=== PATIENT | male | born 1955 | race Caucasian/White ===

== ENCOUNTER 2017-06-28 19:55 | Emergency (ER) | payer MEDICARE, OTHER ==
[~2017-06-28] VITALS: Ht 182.9 cm; Wt 102.1 kg
--- OUTSIDE RECORDS SUMMARY | 2017-06-28 20:02 | XMS REPORT | Referral Summary ---
Author Author [facility] Organization [facility] Address Unknown Phone Unavailable Encounter VC ZAPIEN [id number] Date(s): 06/27/15 - 06/27/15 [facility] [address] [place], [place] [address] Discharge Diagnosis: Contact dermatitis Discharge Disposition: 01-Home or Self Care Attending Physician: Hayden Kumar MD Admitting Physician: Hayden Kumar MD Vital Signs No data available for this section Problem List Condition Effective Dates Status Health Status Informant Acute Active pain(Confirmed) Knowledge Active deficit(Confirmed)1 Self -care Active deficit(Confirmed)2 1Problem added automatically by system based on initiation of Knowledge Deficit Plan of Care 2Problem added automatically by system based on initiation of Self Care Deficit Plan of Care Allergies, Adverse Reactions, Alerts Substance Reaction Severity Status Flexeril Active methadone-like opiates Active Medications acetaminophen 325 mg oral tablet 2 tabs, Oral, q4hr, Pain, 0 Refill(s) Start Date: 08/30/14 Status: Ordered aspirin 81 mg oral delayed release tablet 1 tabs, Oral, Daily, 0 Refill(s) Start Date: 08/30/14 Status: Ordered Ativan 2 mg/mL injectable solution 0.25 mL, IntraMuscular, q4hr, Agitation, 0 Refill(s) Start Date: 08/30/14 Status: Ordered azaTHIOprine 50 mg oral tablet 1 tabs, Oral, BID, 0 Refill(s) Start Date: 08/30/14 Status: Ordered cholecalciferol 1000 intl units oral tablet 1 tabs, Oral, Daily, 0 Refill(s) Start Date: 08/30/14 Status: Ordered clindamycin 150 mg oral capsule 2 caps, Oral, q6hr, 0 Refill(s) Start Date: 08/30/14 Status: Ordered desonide 0.05% topical cream 1 raul, Topical, BID, 0 Refill(s) Start Date: 08/30/14 Status: Ordered desonide 0.05% topical ointment 1 raul, Topical, BID, apply to face twice daily up to 10 days, # 30 g, 0 Refill(s ), Pharmacy: [facility] Start Date: 06/27/15 Status: Ordered ferrous sulfate 325 mg (65 mg elemental iron) oral delayed release tablet 1 tabs, Oral, BIDWM, 0 Refill(s) Start Date: 08/30/14 Status: Ordered hydrochlorothiazide 25 mg oral tablet 1 tabs, Oral, Daily, 0 Refill(s) Start Date: 08/30/14 Status: Ordered Lidoderm 5% topical film 1 patches, TransDermal, Daily, 0 Refill(s) Start Date: 08/30/14 Status: Ordered lisinopril 20 mg oral tablet 1 tabs, Oral, Daily, 0 Refill(s) Start Date: 08/30/14 Status: Ordered magnesium hydroxide 2,400 mg, Oral, q6hr, Constipation, 0 Refill(s) Start Date: 08/30/14 Status: Ordered metFORMIN 500 mg oral tablet 1 tabs, Oral, BIDWM, 0 Refill(s) Start Date: 08/30/14 Status: Ordered metoprolol tartrate 100 mg oral tablet 1 tabs, Oral, BID, 0 Refill(s) Start Date: 08/30/14 Status: Ordered Norvasc 10 mg oral tablet 1 tabs, Oral, Bedtime (once a day), 0 Refill(s) Start Date: 08/30/14 Status: Ordered oxybutynin 5 mg oral tablet 1 tabs, Oral, BID, 0 Refill(s) Start Date: 08/30/14 Status: Ordered SEROquel 100 mg oral tablet 2.5 tabs, Oral, Bedtime (once a day), 0 Refill(s) Start Date: 08/30/14 Status: Ordered SEROquel 50 mg oral tablet 1 tabs, Oral, q6hr, Other (See Comment), 0 Refill(s) Start Date: 08/30/14 Status: Ordered Voltaren Topical 1% topical gel 1 raul, Topical, QID, Pain, 0 Refill(s) Start Date: 08/30/14 Status: Ordered Results No data available for this section Immunizations Vaccine Date Refusal Reason pneumococcal 23-polyvalent vaccine 08/08/14 Procedures No data available for this section Social History Social History Type Response Smoking Status Never smoker Assessment and Plan Extracted from: Title: Ambulatory Patient Education Author: Hayden Kumar MD Date: Immunology Eczema Eczema, also called atopic dermatitis, is a skin disorder that causes inflammation of the skin. It causes a red rash and dry, scaly skin. The skin becomes very itchy. Eczema is generally worse during the cooler winter months and often improves with the warmth of summer. Eczema usually starts showing signs in infancy. Some children outgrow eczema, but it may last through adulthood. CAUSES The exact cause of eczema is not known, but it appears to run in families. People with eczema often have a family history of eczema, allergies, asthma, or hay fever. Eczema is not contagious. Flare-ups of the condition may be caused by: Contact with something you are sensitive or allergic to. Stress. SIGNS AND SYMPTOMS Dry, scaly skin. Red, itchy rash. Itchiness. This may occur before the skin rash and may be very intense. DIAGNOSIS The diagnosis of eczema is usually made based on symptoms and medical history. TREATMENT Eczema cannot be cured, but symptoms usually can be controlled with treatment and other strategies. A treatment plan might include: Controlling the itching and scratching. Use fgtc-ruf-xxrjxhz antihistamines as directed for itching. This is especially useful at night when the itching tends to be worse. Use vefp-jip-dcmkunr steroid creams as directed for itching. Avoid scratching. Scratching makes the rash and itching worse. It may also result in a skin infection (impetigo) due to a break in the skin caused by scratching. Keeping the skin well moisturized with creams every day. This will seal in moisture and help prevent dryness. Lotions that contain alcohol and water should be avoided because they can dry the skin. Limiting exposure to things that you are sensitive or allergic to (allergens) . Recognizing situations that cause stress. Developing a plan to manage stress. HOME CARE INSTRUCTIONS Only take lmhw-ubp-krjkbop or prescription medicines as directed by your health care provider. Do not use anything on the skin without checking with your health care provider. Keep baths or showers short (5 minutes) in warm (not hot) water. Use mild cleansers for bathing. These should be unscented. You may add nonperfumed bath oil to the bath water. It is best to avoid soap and bubble bath. Immediately after a bath or shower, when the skin is still damp, apply a moisturizing ointment to the entire body. This ointment should be a petroleum ointment. This will seal in moisture and help prevent dryness. The thicker the ointment, the better. These should be unscented. Keep fingernails cut short. Children with eczema may need to wear soft gloves or mittens at night after applying an ointment. Dress in clothes made of cotton or cotton blends. Dress lightly, because heat increases itching. A child with eczema should stay away from anyone with fever blisters or cold sores. The virus that causes fever blisters (herpes simplex) can cause a serious skin infection in children with eczema. SEEK MEDICAL CARE IF: Your itching interferes with sleep. Your rash gets worse or is not better within 1 week after starting treatment. You see pus or soft yellow scabs in the rash area. You have a fever. You have a rash flare-up after contact with someone who has fever blisters. Document Released: 09/09/2001 Document Revised: 07/03/2014 Document Reviewed: [facility] Patient Information 2015 [facility], [facility]. This information is not intended to replace advice given to you by your health care provider. Make sure you discuss any questions you have with your health care provider. No follow up information was provided. Extracted from: Title: Office Visit Note Author: Hayden Kumar MD Date: 06/27/15 Assessment/Plan 1.Contact dermatitis This appears to be due to allergic or irritant contact dermatitis with no clear cause. Patient has dementia so it is unclear what may have happened. Discontinue all products and use only very gentle cleansing once or twice a day to the face and use desonide ointment for up to 10 more days and follow-up in 3 weeks to see if it continues to improve. I expect the hyperpigmentation will persist for quite some time and gradually fade Ordered: desonide topical, 1 raul, Topical, BID, apply to face twice daily up to 10 days , # 30 g, 0 Refill(s), Pharmacy: [facility] Office Visit Level 2 New [id number]
--- OUTSIDE RECORDS SUMMARY | 2017-06-28 20:02 | XMS REPORT | Referral Summary ---
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 Use pnzk-vit-idejqqi antihistamines as directed for itching. This is especially useful at night when the itching tends to be worse. Use rkla-wzp-gdatkve steroid creams as directed for itching. Avoid [...] manage stress. HOME CARE INSTRUCTIONS Only take hbxe-brz-kcbuywp or prescription medicines as directed by your [...] Released: 09/09/2001 Document Revised: 07/03/2014 Document Reviewed: [facility] Patient Information [facility]. This information is not intended to [...] , # 30 g, 0 Refill(s), Pharmacy: [facility] Office Visit Level 2 New [id number]
--- OUTSIDE RECORDS SUMMARY | 2017-06-28 20:03 | XMS REPORT | Referral Summary ---
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 Name Role Phone Estela Thao PCP Encounter VC Date(s): 05/21/16 - 05/21/16 [facility] [address] [place], [place] [address] Discharge Disposition: 01-Home or Self Care Attending Physician: Jana Allen MD Admitting Physician: Jana Allen MD Referring Physician: Estela Thao DO Vital Signs Most recent to 1 oldest [Reference Range]: Respiratory Rate 20 br/min [14-20 br/min] (05/21/16 10:06 AM) Blood Pressure 130/80 mmHg [90-140/60-90 mmHg] (05/21/16 10:06 AM) Problem List Condition Effective Dates Status Health [...] 0 Refill(s) Start Date: 08/30/14 Status: Ordered amLODIPine Oral, Daily, 0 Refill(s) Start Date: 05/21/16 Status: Ordered azaTHIOprine 50 mg oral tablet 1 tabs, Oral, BID, 0 Refill(s) Start Date: 08/30/14 Status: Ordered azaTHIOprine 50 mg oral tablet mg tabs, Oral, Daily, 0 Refill(s) Start Date: 05/21/16 Status: Ordered clopidogrel 75 mg oral tablet mg tabs, Oral, Daily, 0 Refill(s) Start Date: 05/21/16 Status: Ordered donepezil 10 mg oral tablet mg tabs, Oral, Bedtime (once a day), 0 Refill(s) Start Date: 05/21/16 Status: Ordered Generlac 0 Refill(s) Start Date: 05/21/16 Status: Ordered hydrALAZINE 0 Refill(s) Start Date: 05/21/16 Status: Ordered HYDROcodone-acetaminophen 10 mg-325 mg oral tablet tabs, Oral, q6hr, 0 Refill(s) Start Date: 05/21/16 Status: Ordered metFORMIN 500 mg oral tablet 1 tabs, Oral, BIDWM, 0 Refill(s) Start Date: 08/30/14 Status: Ordered metFORMIN 500 mg oral tablet, extended release mg tabs, Oral, Daily, 0 Refill(s) Start Date: 05/21/16 Status: Ordered metoprolol tartrate 100 mg oral tablet 1 tabs, Oral, BID, 0 Refill(s) Start Date: 08/30/14 Status: Ordered metoprolol tartrate 50 mg oral tablet mg tabs, Oral, BID, 0 Refill(s) Start Date: 05/21/16 Status: Ordered Norvasc 10 mg oral tablet 1 tabs, Oral, Bedtime (once a day), 0 Refill(s) Start Date: 08/30/14 Status: Ordered omeprazole 20 mg oral delayed release tablet mg tabs, Oral, Daily, 0 Refill(s) Start Date: 05/21/16 Status: Ordered oxybutynin 5 mg oral tablet 1 tabs, Oral, BID, 0 Refill(s) Start Date: 08/30/14 Status: Ordered oxybutynin 5 mg oral tablet mg tabs, Oral, TID, 0 Refill(s) Start Date: 05/21/16 Status: Ordered QUEtiapine Oral, 0 Refill(s) Start Date: 05/21/16 Status: Ordered SEROquel 100 mg oral tablet 2.5 tabs, Oral, Bedtime (once a day), 0 Refill(s) Start Date: 08/30/14 Status: Ordered SEROquel 50 mg oral tablet 1 tabs, Oral, q6hr, Other (See Comment), 0 Refill(s) Start Date: 08/30/14 Status: Ordered sertraline Oral, Daily, 0 Refill(s) Start Date: 05/21/16 Status: Ordered simvastatin 20 mg oral tablet mg tabs, Oral, Bedtime (once a day), 0 Refill(s) Start Date: 05/21/16 Status: Ordered Results Chemistry Most recent to 1 oldest [Reference Range]: PSA (wihout Reflex 8.2 ng/mL 1 Free) [0.0-4.5 *HI* ng/mL] (05/21/16 11:15 AM) 1Result Comment: AUA PSA Best Practice Guidelines: Age-Adjusted PSA Values by Ethnic Group Age Range Asians - Caucasians Americans 40-49 0-2.0 0-2.0 0-2.5 50-59 0-3.0 0-4.0 0-3.5 60-69 0-4.0 0-4.5 0-4.5 70-79 0-5.0 0-5.5 0-6.5 Urinalysis Most recent to 1 oldest [Reference Range]: UA Color Yellow (05/21/16 11:15 AM) UA Appear Clear (05/21/16 11:15 AM) UA pH [5.0-8.0] 5.5 (05/21/16 11:15 AM) UA Leuk Est Negative [Negative] (05/21/16 11:15 AM) UA Nitrite Negative [Negative] (05/21/16 11:15 AM) UA Protein Pos 2+ [Negative] *ABN* (05/21/16 11:15 AM) UA Glucose Negative [Negative] (05/21/16 11:15 AM) UA Ketones Negative [Negative] (05/21/16 11:15 AM) UA Urobilinogen 1.0 mg/dL [<1.0 mg/dL] (05/21/16 11:15 AM) UA Bili [Negative] Negative (05/21/16 11:15 AM) UA Blood [Negative] Trace *ABN* (05/21/16 11:15 AM) UA Spec Grav 1.028 [1.003-1.030] (05/21/16 11:15 AM) Type Voided (05/21/16 11:15 AM) UA WBC [0-4] 2-4 (05/21/16 11:15 AM) UA RBC [0-4] 0-4 (05/21/16 11:15 AM) Epithelial Cells 0-2 (05/21/16 11:15 AM) UA Hyal Cast [0-3] 1-3 (05/21/16 11:15 AM) Immunizations Vaccine Date Refusal Reason pneumococcal 23-polyvalent vaccine 08/08/14 Procedures No data available for this section Social History Social History Type Response Smoking Status Never smoker Assessment and Plan No data available for this section
--- OUTSIDE RECORDS SUMMARY | 2017-06-28 20:03 | XMS REPORT ---
Author Author Shayy Sarkar Organization [facility] Spec Address [address] [place] [address] Care Team Providers Care Foreign Student Adviser Name Role Phone Shayy Sarkar Unavailable PROBLEMS Type Condition ICD9-CM Code RZX48-TQ Code Onset Dates Condition Status SNOMED Code Problem Type 2 diabetes mellitus with hyperglycemia E11.65 Active 55539477 Problem Hyperlipidemia, unspecified hyperlipidemia type E78.5 Active 33079505 Problem GERD without esophagitis K21.9 Active 471715920 Assessment Dementia with behavioral disturbance, unspecified dementia type F03.91 Dec, Active 7326672619268 Problem 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 Unknown Non Drug Allergy Dec, Unknown SOCIAL HISTORY No smoking Hx information available PLAN OF CARE VITAL SIGNS MEDICATIONS Medication Instructions Dosage Frequency Start Date End Date Duration Status Vanderpool 325 mg-10 mg orally tid 1 tab 8h Active Colace sodium 100 mg orally bid 1 cap 12h Active NovoLog 100 units/mL subcutaneously tid 26 units 8h Active metformin 500 mg orally bid 1 tab 12h Active simvastatin 20 mg orally qhs 1 tab Active famotidine 20 mg orally qhs 1 tab Active Seroquel 100 mg orally qam 1 tab Active hydralazine 25 mg orally bid 1 tab 12h Active haloperidol 0.5 mg orally q4h prn 1 tab Active MiraLax Active oxybutynin 5 mg orally daily 1 tab 24h Active gabapentin 100 mg orally tid 1 cap 8h Active galantamine 4 mg orally bid 1 tab 12h Active quetiapine 100 mg orally qhs 1 tab Active clopidogrel 75 mg orally daily 1 tab 24h Active acetaminophen 325 mg orally q4h prn 2 tab Active memantine 10 mg orally daily 1 tab 24h Active Metoprolol Tartrate 25 mg orally bid 1 tab 12h Active Levemir 100 units/mL subcutaneously bid 12 units 12h Active azathioprine 50 mg orally bid 1 tab 12h Active Vitamin D3 1000 intl units orally daily 1 tab 24h Active sertraline 100 mg orally daily 1 tab 24h Active RESULTS No Results PROCEDURES Procedure Date Ordered Related Diagnosis Body Site Subseq Care-New CC January 13, 2017 IMMUNIZATIONS No Known Immunizations
--- OUTSIDE RECORDS SUMMARY | 2017-06-28 20:03 | XMS REPORT | Continuity of Care Document ---
Author Author [facility] Organization [facility] Address Unknown Phone Unavailable Allergies Active Description Code Type Severity Reaction Onset Reported/Identified Relationship to Patient Clinical Status Yes FLEXERIL [id number] Drug Allergy N/A N/A Yes NKDA N/A N/A Yes Flexeril NKMA N/A N/A 08/07/2014 Yes methadone-like opiates NKMA N/A N/A 08/07/2014 Yes cyclobenzaprine cyclobenzaprine Drug Allergy Unknown UNKNOWN 05/01/2017 Yes methadone methadone Drug Allergy Unknown UNKNOWN 05/01/2017 Medications Problems Date Dx Coded Attending Type Code Diagnosis Diagnosed By 11/04/2016 F F03.91 Unspecified dementia with behavioral disturbance Baylee Shane 11/04/2016 F F03.91 Unspecified dementia with behavioral disturbance Baylee Coronel 11/05/2016 F F31.81 Bipolar II disorder Baylee Coronel 11/05/2016 F F31.81 Bipolar II disorder Baylee Shane 11/05/2016 F I27.0 Primary pulmonary hypertension Baylee Shane 11/05/2016 F K74.60 Unspecified cirrhosis of liver Baylee Shane 05/01/2017 Harsha Fowler DO A41.9 SEPSIS, UNSPECIFIED ORGANISM 05/01/2017 Harsha Fowler DO B37.0 CANDIDAL STOMATITIS 05/01/2017 Harsha Fowler DO D64.89 OTHER SPECIFIED ANEMIAS 05/01/2017 Harsha Fowler DO E11.9 TYPE 2 DIABETES MELLITUS WITHOUT COMPLICATIONS 05/01/2017 Harsha Fowler DO E83.39 OTHER DISORDERS OF PHOSPHORUS METABOLISM 05/01/2017 Harsha Fowler DO E87.0 HYPEROSMOLALITY AND HYPERNATREMIA 05/01/2017 Harsha Fowler DO E87.6 HYPOKALEMIA 05/01/2017 Harsha Fowler DO F03.90 UNSPECIFIED DEMENTIA WITHOUT BEHAVIORAL DISTURBANC 05/01/2017 Harsha Fowler DO F17.210 NICOTINE DEPENDENCE, CIGARETTES, UNCOMPLICATED 05/01/2017 Harsha Fowler DO F43.10 POST-TRAUMATIC STRESS DISORDER, UNSPECIFIED 05/01/2017 Harsha Fowler DO G93.40 ENCEPHALOPATHY, UNSPECIFIED 05/01/2017 Harsha Fowler DO G93.6 CEREBRAL EDEMA 05/01/2017 Harsha Fowler DO I61.5 NONTRAUMATIC INTRACEREBRAL HEMORRHAGE, INTRAVENTRI 05/01/2017 Harsha Fowler DO I61.9 NONTRAUMATIC INTRACEREBRAL HEMORRHAGE, UNSPECIFIED 05/01/2017 Harsha Fowler DO 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 05/01/2017 Harsha Fowler DO J69.0 PNEUMONITIS DUE TO INHALATION OF FOOD AND VOMIT 05/01/2017 Harsha Fowler DO K80.10 CALCULUS OF GALLBLADDER W CHRONIC CHOLECYST W/O OB 05/01/2017 Harsha Fowler DO L89.90 PRESSURE ULCER OF UNSPECIFIED SITE, UNSPECIFIED ST 05/01/2017 Harsha Fowler DO M33.20 POLYMYOSITIS, ORGAN INVOLVEMENT UNSPECIFIED 05/01/2017 Harsha Fowler DO R56.9 UNSPECIFIED CONVULSIONS 05/01/2017 Harsha Fowler DO Z66 DO NOT RESUSCITATE 05/01/2017 Harsha Fowler DO Z79.02 ESTIMATOR LUMBER (CURRENT) USE OF ANTITHROMBOTICS /ANTIPLA 05/01/2017 Harsha Fowler DO Z85.038 PERSONAL HISTORY OF MALIGNANT NEOPLASM OF LARGE IN Procedures Code Description Performed By Performed On T1023 Baylee Shane 11/04/2016 [id number] INSERTION OF FEEDING DEVICE INTO DUODENUM, PERC PALMER Harrison MD, Damon Ledesma 05/01/2017 [id number] INSERTION OF FEEDING DEVICE INTO JEJUNUM, PERC BURTON Vegas MD, Sesar Jorgensen 05/01/2017 [id number] DRAINAGE OF GALLBLADDER WITH DRAINAGE DEVICE, LINA Duffy MD, Harshad Brandt 05/01/2017 [id number] MEASURE OF CENTRAL NERVOUS ELECTR ACTIVITY, PORTABLE ROUTER OPERATOR 05/01/2017 Encounters ACCT No. Visit Date/Time Discharge Status Pt. 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 ELEVATED PSA [id number] 06/27/2015 14:44:00 2014 23:59:00 DIS Outpatient Hayden Kumar [facility] [address] Derm Redness on face [id number] 01/19/2017 18:23:00 Document Registration [id number] 11/09/2016 22:18:00 Document Registration [id number] 09/14/2016 11:57:05 09/14/2016 23:59:59 CLS Outpatient [id number] 09/14/2016 11:57:04 09/14/2016 23:59:59 CLS Outpatient [id number] 09/13/2016 14:27:00 09/13/2016 14:27:00 DIS Outpatient [id number] 09/13/2016 14:06:10 09/13/2016 14:06:10 DIS Outpatient [id number] 09/13/2016 12:40:11 09/13/2016 12:40:11 DIS Outpatient [id number] 09/13/2016 11:42:41 09/13/2016 11:42:41 DIS Outpatient [id number] 09/13/2016 11:05:00 09/13/2016 11:05:01 DIS Outpatient [id number] 07/01/2016 08:41:55 07/01/2016 23:59:59 CLS Outpatient [id number] 07/01/2016 07:32:45 07/01/2016 23:59:59 CLS Outpatient [id number] 07/01/2016 07:31:14 07/01/2016 23:59:59 CLS Outpatient [id number] 07/01/2016 07:28:12 07/01/2016 23:59:59 CLS Outpatient [id number] 07/01/2016 07:25:42 07/01/2016 23:59:59 CLS Outpatient [id number] 07/01/2016 07:24:15 07/01/2016 23:59:59 CLS Outpatient [id number] 07/01/2016 07:23:52 07/01/2016 23:59:59 CLS Outpatient [id number] 07/01/2016 07:23:00 07/01/2016 23:59:59 CLS Outpatient [id number] 07/01/2016 07:22:54 07/01/2016 23:59:59 CLS Outpatient [id number] 07/01/2016 07:22:46 07/01/2016 23:59:59 CLS Outpatient [id number] 07/01/2016 07:22:37 07/01/2016 23:59:59 CLS Outpatient [id number] 07/01/2016 07:22:36 07/01/2016 23:59:59 CLS Outpatient [id number] 07/01/2016 07:22:35 07/01/2016 23:59:59 CLS Outpatient [id number] 07/01/2016 07:22:34 07/01/2016 23:59:59 CLS Outpatient [id number] 07/01/2016 07:22:33 07/01/2016 23:59:59 CLS Outpatient [id number] 07/01/2016 07:22:29 07/01/2016 23:59:59 CLS Outpatient [id number] 07/01/2016 07:22:27 07/01/2016 23:59:59 CLS Outpatient [id number] 07/01/2016 06:35:47 07/01/2016 06:35:47 ACT Outpatient [id number] 07/01/2016 06:35:42 07/01/2016 06:35:42 ACT Outpatient [id number] 07/01/2016 06:35:40 07/01/2016 06:35:41 ACT Outpatient [id number] 07/01/2016 06:35:39 07/01/2016 06:35:39 ACT Outpatient [id number] 07/01/2016 06:35:38 07/01/2016 06:35:38 ACT Outpatient [id number] 07/01/2016 06:35:37 07/01/2016 06:35:37 ACT Outpatient [id number] 05/18/2016 01:55:42 05/18/2016 01:55:42 ACT Outpatient [id number] 05/17/2016 17:56:02 05/17/2016 17:56:02 ACT Outpatient [id number] 09/13/2016 11:39:00 Document Registration [id number] 06/10/2016 12:56:00 Document Registration [id number] 06/10/2016 12:47:00 Document Registration [id number] 11/04/2016 17:55:00 11/04/2016 23:59:59 CLS Outpatient [id number] 05/01/2017 12:17:00 2016 12:01:00 [facility]
--- NOTE | 2017-06-28 20:19 | ED General ---
General Chief Complaint: Catheter/Drain/Tube Problems Stated Complaint: MESSING WITH SPENCER DRAIN Source of Information: Patient Exam Limitations: No Limitations History of Present Illness Time Seen by Provider: 20:17 Initial Comments To ER with reports of the patient pulling on his recently placed PEG tube and SPENCER drain to the lateral upper abdominal wall. He is in the Alzheimer's unit at [facility] Timing/Duration: 1/2 Hour Severity: Moderate Allergies and Home Medications Allergies Coded Allergies: cyclobenzaprine (Verified Allergy, Unknown, 06/28/17) methadone (Verified Allergy, Unknown, 06/28/17) Home Medications Amlodipine Besylate 5 Mg Tablet, 5 MG PO DAILY, (Reported) Atorvastatin Calcium 40 Mg Tablet, 40 MG PO, (Reported) Divalproex Sodium 125 Mg Tablet.dr, 125 MG PO, (Reported) Donepezil HCl 10 Mg Tablet, 10 MG PO, (Reported) Hydralazine HCl 25 Mg Tablet, 25 MG PO, (Reported) Memantine HCl 10 Mg Tablet, 10 MG PO, (Reported) Sertraline HCl 25 Mg Tablet, 25 MG PO, (Reported) Sertraline HCl 50 Mg Tablet, 50 MG PO, (Reported) Trazodone HCl 150 Mg Tablet, 150 MG PO, (Reported) Constitutional: see HPI EENTM: see HPI Respiratory: no symptoms reported Cardiovascular: no symptoms reported Genitourinary: no symptoms reported Musculoskeletal: no symptoms reported Skin: no symptoms reported Psychiatric/Neurological: No Symptoms Reported Hematologic/Lymphatic: No Symptoms Reported Physical Exam Vital Signs Vital Sign - Last 12Hours 06/28/17 20:05 Temp 98.9 Pulse 72 Resp 18 B/P (MAP) 129/81 Pulse Ox 99 Capillary Refill : General Appearance: No Apparent Distress, WD/WN Eyes: Bilateral Eye Normal Inspection, Bilateral Eye PERRL, Bilateral Eye EOMI HEENT: PERRL/EOMI, TMs Normal Neck: Full Range of Motion, Normal Inspection Respiratory: No Accessory Muscle Use, No Respiratory Distress, Other (lungs are clear. There is serosanguineous drainage in the bowl but the SPENCER drain that remains attached to the right upper abdominal lower chest wall. He has broken the sutures that attached to this in place.) Gastrointestinal: Normal Bowel Sounds, Non Tender, Soft, Other (there is a PEG tube that is in place with the balloon still inflated to the epigastric region. This appears normal there is no blood around it. The SPENCER drain in the right lateral upper abdominal lower chest wall does not have sutures intact but the drain remains in place.) Neurologic/Psychiatric: Alert, Oriented x3, No Motor/Sensory Deficits Skin: Normal Color, Warm/Dry Progress/Results/Core Measures Results/Orders My Orders Orders - JANNET KELLER APRN Peg Tube Check (06/28/17 20:15) Chest Pa/Lat (2 View) (06/28/17 20:15) Abdomen/Kub 1view (06/28/17 20:15) Vital Signs/I&O Vital Sign - Last 12Hours 06/28/17 20:05 Temp 98.9 Pulse 72 Resp 18 B/P (MAP) 129/81 Pulse Ox 99 Diagnostic Imaging Diagonstic Imaging: Xray Plain Films/CT/US/NM/MRI: chest Comments NAME: JENNIFER ARELLANO [facility] REC#: [id number] PT STATUS: REG ER : 1955 PHYSICIAN: JANNET KELLER APRN ADMIT DATE: 06/28/17/ER Draft Date of Exam:06/28/17 CHEST PA/LAT (2 VIEW) INDICATION: Not provided COMPARISON: 11/09/2016 FINDINGS: Two views of the chest were obtained. Allowing for low lung volumes, heart size is upper limits of normal but unchanged. There is no central venous congestion. There is no pneumothorax, mediastinal widening or pleural fluid demonstrated. Lungs are clear. There is a smallbore drainage catheter projecting in the right upper quadrant. IMPRESSION: No evidence of an acute cardiopulmonary abnormality. Dictated on workstation # [id number] Dict: 06/28/172126 Trans: 06/28/17 213 [facility] [id number] Interpreted by: SUSAN RINALDI DO Electronically signed by: NAME: ADANJENNIFER [facility] REC#: [id number] PT STATUS: REG ER : 1955 PHYSICIAN: JANNET KELLER APRN ADMIT DATE: 06/28/17/ER Draft Date of Exam:06/28/17 ABDOMEN/KUB 1VIEW INDICATION: Not provided COMPARISON: None. FINDINGS: AP, supine and crosstable lateral views of the abdomen are obtained. There is a gastrostomy tube projecting over the left upper quadrant. On one view, there has been administration of contrast material to the gastrostomy tube which fills a portion of the stomach and duodenum confirming placement within the mid stomach. There is a smallbore drainage catheter seen over the right upper quadrant. The bowel gas pattern is nonspecific but does not appear obstructive. No portal venous gas is suspected. Crosstable lateral view showed no convincing evidence of free intraperitoneal air. IMPRESSION: No radioactive evidence of an acute abdominal process. Gastrostomy tube appears to be within the mid stomach. Dictated on workstation # [id number] Dict: 06/28/172127 Trans: 06/28/172138 [facility] [id number] Interpreted by: SUSAN RINALDI DO Electronically signed by: Departure Impression Impression: Primary Impression: PEG (percutaneous endoscopic gastrostomy) status Disposition: 01 HOME, SELF-CARE Condition: Stable Departure-Patient Inst. Decision time for Depature: 21:35 Referrals: BREA JIMENEZ DO (PCP) Primary Care Physician Patient Instructions: NO INSTRUCTIONS GIVEN Add. Discharge Instructions: 1. Return to ER for any concerns 2. Both his PEG tube and SPENCER drain appeared to be functioning normally and in the correct location. Please call his surgeon tomorrow to ask when the SPENCER drain can be removed. If he removes the SPENCER drain tonight simply cover this site with gauze and a dressing and call his surgeon tomorrow morning. Do not attempt to reinsert the SPENCER drain JANNET KELLER APRN Jun 28, 2017 20:19
[2017-06-28] MEDS ORDERED: AMLO5TAB4 PO (20:35)
[2017-06-28] MEDS ORDERED: DIVA125T2 PO (20:35)
[2017-06-28] MEDS ORDERED: ATOR40TA70 PO (20:35)
[2017-06-28] MEDS ORDERED: MEMA10TA22 PO (20:35)
[2017-06-28] MEDS ORDERED: SERT50TA2 PO (20:35)
[2017-06-28] MEDS ORDERED: HYDR-3923 PO (20:35)
[2017-06-28] MEDS ORDERED: DONE10TA41 PO (20:35)
[2017-06-28] MEDS ORDERED: TRAZ150T72 PO (20:35)
[2017-06-28] MEDS ORDERED: SERT25TA PO (20:35)
--- NOTE | 2017-06-28 21:34 | Diagnostic Imaging Report ---
INDICATION: Not provided COMPARISON: 11/09/2016 FINDINGS: Two views of the chest were obtained. Allowing for low lung volumes, heart size is upper limits of normal but unchanged. There is no central venous congestion. There is no pneumothorax, mediastinal widening or pleural fluid demonstrated. Lungs are clear. There is a smallbore drainage catheter projecting in the right upper quadrant. IMPRESSION: No evidence of an acute cardiopulmonary abnormality. Dictated by: Dictated on workstation # [id number]
--- NOTE | 2017-06-28 21:39 | Diagnostic Imaging Report ---
INDICATION: Not provided COMPARISON: None. FINDINGS: AP, supine and crosstable lateral views of the abdomen are obtained. There is a gastrostomy tube projecting over the left upper quadrant. On one view, there has been administration of contrast material to the gastrostomy tube which fills a portion of the stomach and duodenum confirming placement within the mid stomach. There is a smallbore drainage catheter seen over the right upper quadrant. The bowel gas pattern is nonspecific but does not appear obstructive. No portal venous gas is suspected. Crosstable lateral view showed no convincing evidence of free intraperitoneal air. IMPRESSION: No radioactive evidence of an acute abdominal process. Gastrostomy tube appears to be within the mid stomach. Dictated by: Dictated on workstation # [id number]
[2017-06-28 23:07] VITALS: BP 126/82
== END 2017-06-28 23:07 | disposition home or self-care (01) ==
LOC: ER 19:57
DX: Z46.82 Encounter for fitting and adjustment of non-vascular catheter (principal)
CPT/HCPCS: 49465; 71020; 74000; 99283

== ENCOUNTER 2017-07-02 06:55 | Emergency (ER) | payer MEDICARE ==
[~2017-07-02] VITALS: Ht 182.9 cm; Wt 102.1 kg
[~2017-07-02 06:55] MED LIST: AMLO5TAB4 PO; ATOR40TA70 PO; DIVA125T2 PO; DONE10TA41 PO; HYDR-3923 PO; MEMA10TA22 PO; SERT25TA PO; SERT50TA2 PO; TRAZ150T72 PO
--- OUTSIDE RECORDS SUMMARY | 2017-07-02 07:01 | XMS REPORT | Continuity of Care Document ---
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 Visit Date/Time Discharge Status Pt. Type Provider Facility Loc./Unit Complaint [id number] 05/21/2016 09:32:00 2015 23:59:00 DIS Outpatient Jana Allen [facility] [place] [employer] ELEVATED PSA [id number] 06/27/2015 14:44:00 2014 23:59:00 DIS Outpatient Hayden Kumar [facility] E21 Derm Redness on face [id number] 01/19/2017 18:23:00 Document Registration [id number] 11/09/2016 22:18:00 Document Registration [id number] 09/14/2016 11:57:05 09/14/2016 23:59:59 CLS Outpatient [id number] 09/14/2016 11:57:04 09/14/2016 23:59:59 CLS Outpatient [id number] 09/13/2016 14:27:00 09/13/2016 14:27:00 DIS Outpatient [id number] 09/13/2016 14:06:10 09/13/2016 14:06:10 DIS Outpatient [id number] 09/13/2016 12:40:11 09/13/2016 12:40:11 DIS Outpatient [id number] 09/13/2016 11:42:41 09/13/2016 11:42:41 DIS Outpatient [id number] 09/13/2016 11:05:00 09/13/2016 11:05:01 DIS Outpatient [id number] 07/01/2016 08:41:55 07/01/2016 23:59:59 CLS Outpatient [id number] 07/01/2016 07:32:45 07/01/2016 23:59:59 CLS Outpatient [id number] 07/01/2016 07:31:14 07/01/2016 23:59:59 CLS Outpatient [id number] 07/01/2016 07:28:12 07/01/2016 23:59:59 CLS Outpatient [id number] 07/01/2016 07:25:42 07/01/2016 23:59:59 CLS Outpatient [id number] 07/01/2016 07:24:15 07/01/2016 23:59:59 CLS Outpatient [id number] 07/01/2016 07:23:52 07/01/2016 23:59:59 CLS Outpatient [id number] 07/01/2016 07:23:00 07/01/2016 23:59:59 CLS Outpatient [id number] 07/01/2016 07:22:54 07/01/2016 23:59:59 CLS Outpatient [id number] 07/01/2016 07:22:46 07/01/2016 23:59:59 CLS Outpatient [id number] 07/01/2016 07:22:37 07/01/2016 23:59:59 CLS Outpatient [id number] 07/01/2016 07:22:36 07/01/2016 23:59:59 CLS Outpatient [id number] 07/01/2016 07:22:35 07/01/2016 23:59:59 CLS Outpatient [id number] 07/01/2016 07:22:34 07/01/2016 23:59:59 CLS Outpatient [id number] 07/01/2016 07:22:33 07/01/2016 23:59:59 CLS Outpatient [id number] 07/01/2016 07:22:29 07/01/2016 23:59:59 CLS Outpatient [id number] 07/01/2016 07:22:27 07/01/2016 23:59:59 CLS Outpatient [id number] 07/01/2016 06:35:47 07/01/2016 06:35:47 ACT Outpatient [id number] 07/01/2016 06:35:42 07/01/2016 06:35:42 ACT Outpatient [id number] 07/01/2016 06:35:40 07/01/2016 06:35:41 ACT Outpatient [id number] 07/01/2016 06:35:39 07/01/2016 06:35:39 ACT Outpatient [id number] 07/01/2016 06:35:38 07/01/2016 06:35:38 ACT Outpatient [id number] 07/01/2016 06:35:37 07/01/2016 06:35:37 ACT Outpatient [id number] 05/18/2016 01:55:42 05/18/2016 01:55:42 ACT Outpatient [id number] 05/17/2016 17:56:02 05/17/2016 17:56:02 ACT Outpatient [id number] 09/13/2016 11:39:00 Document Registration [id number] 06/10/2016 12:56:00 Document Registration [id number] 06/10/2016 12:47:00 Document Registration [id number] 11/04/2016 17:55:00 11/04/2016 23:59:59 CLS Outpatient [id number] 05/01/2017 12:17:00 2016 12:01:00 [facility] [facility]
--- NOTE | 2017-07-02 07:17 | ED General ---
General Chief Complaint: Catheter/Drain/Tube Problems Stated Complaint: SPENCER TUBE PULLED OUT Nursing Triage Note: patient sent for pulling SPENCER drain Nursing Sepsis Screen: No Definite Risk Source of Information: EMS, Correction Records, Other (Dr. Jimenez) History of Present Illness Time Seen by Provider: 06:11 Initial Comments This 62-year-old gentleman from [facility] presents to the emergency room because he removed a SPENCER drain from his right lower chest/ upper abdomen. The reason for the drain is uncertain. He apparently had a placed postoperatively or intraoperatively for an unknown surgery on an unknown date. Patient cannot provide any history due to his baseline neurologic state. The drain was brought with the patient. It has a small amount of serosanguineous drainage in it. The drain is intact and not missing any pieces. There is no evidence of infection at the drain site but there is a small amount of green drainage on the dressing. Allergies and Home Medications Allergies Coded Allergies: cyclobenzaprine (Verified Allergy, Unknown, 06/28/17) methadone (Verified Allergy, Unknown, 06/28/17) Home Medications Amlodipine Besylate 5 Mg Tablet, 5 MG PO DAILY, (Reported) Atorvastatin Calcium 40 Mg Tablet, 40 MG PO, (Reported) Divalproex Sodium 125 Mg Tablet.dr, 125 MG PO, (Reported) Donepezil HCl 10 Mg Tablet, 10 MG PO, (Reported) Hydralazine HCl 25 Mg Tablet, 25 MG PO, (Reported) Memantine HCl 10 Mg Tablet, 10 MG PO, (Reported) Sertraline HCl 25 Mg Tablet, 25 MG PO, (Reported) Sertraline HCl 50 Mg Tablet, 50 MG PO, (Reported) Trazodone HCl 150 Mg Tablet, 150 MG PO, (Reported) Constitutional: no symptoms reported EENTM: no symptoms reported Respiratory: no symptoms reported Cardiovascular: no symptoms reported Gastrointestinal: see HPI Genitourinary: no symptoms reported Musculoskeletal: no symptoms reported Skin: see HPI Psychiatric/Neurological: See HPI Hematologic/Lymphatic: No Symptoms Reported Past Uuewggm-Hxylab-Jugdlc Hx Patient Social History Alcohol Use: Denies Use Recreational Drug Use: No Smoking Status: Unknown if Ever Smoked Recent Foreign Travel: No Contact w/Someone Who Travel: No Recent Infectious Disease Expo: No Physical Abuse: No Sexual Abuse: No Surgeries History of Surgeries: Yes Surgeries: Abdominal (gastrostomy tube), Gallbladder Respiratory History of Respiratory Disorde: Yes Respiratory Disorders: Pneumonia Cardiovascular History of Cardiac Disorders: Yes Cardiac Disorders: Hypertension Neurological History of Neurological Disord: Yes Neurological Disorders: Dementia, 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) Genitourinary History of Genitourinary Disor: No Gastrointestinal History of Gastrointestinal Di: Yes (gastrostomy tube) Musculoskeletal History of Musculoskeletal Dis: No Endocrine History of Endocrine Disorders: Yes Endocrine Disorders: Diabetes, Insulin dep HEENT History of HEENT Disorders: No Cancer History of Cancer: Yes Cancer: Colon Psychosocial History of Psychiatric Problem: Yes (restlessness and agitation) Behavioral Health Disorders: PTSD Suicide Risk Score: 0 Integumentary History of Skin or Integumenta: No Physical Exam Vital Signs Vital Sign - Last 12Hours 07/02/17 06:57 Temp 98.2 Pulse 74 Resp 18 B/P (MAP) 116/75 Pulse Ox 97 Capillary Refill : Less Than 3 Seconds General Appearance: No Apparent Distress, WD/WN HEENT: Normal ENT Inspection Respiratory: Lungs Clear, Normal Breath Sounds, No Accessory Muscle Use, No Respiratory Distress Cardiovascular: Regular Rate, Rhythm, No Edema, No Murmur Gastrointestinal: Normal Bowel Sounds, Non Tender, Soft, Other (PEG tube in place with site clean dry and intact) Neurologic/Psychiatric: Alert, Other (has cognitive and motor deficits at baseline, current status stated as baseline) Skin: Normal Color, Warm/Dry, Other (SPENCER site in the right lateral lower chest appears clean, dry, without signs of infection) Progress/Results/Core Measures Results/Orders Vital Signs/I&O Vital Sign - Last 12Hours 07/02/17 06:57 Temp 98.2 Pulse 74 Resp 18 B/P (MAP) 116/75 Pulse Ox 97 Blood Pressure Mean: 89 Progress Note : Time: 07:12 Progress Note Multiple phone calls were made to determine appropriate course of action for this patient. I first called Dr. Jimenez to obtain further history. He is uncertain of when the patient had surgery but stated the drain was placed for a cholecystectomy. I then contacted the assisted for further information about the drain output. There was no notation in the chart and no knowledge from nursing staff regarding the procedure done or the date of the procedure. The nursing staff I spoke with stated the SPENCER drain has been yielding 30-50 mL of serosanguineous drainage every 8-12 hours. I then placed a call to Dr. Graves for advice on course of action given the amount of drainage. Dr. Graves advised no action needs to be taken emergently. A follow-up with a surgeon as an outpatient is appropriate. The drain site was treated with antibiotic ointment and a clean dressing was applied. The assisted was notified the patient is to be discharged. Departure Impression Impression: Primary Impression: removed Kale-Mathur drain Disposition: HOME, SELF-CARE Condition: Improved Departure-Patient Inst. Decision time for Depature: 07:05 Referrals: BREA JIMENEZ DO (PCP/Family) Primary Care Physician Patient Instructions: Kale-Mathur Drain Add. Discharge Instructions: Please contact the primary care provider's office on Tuesday to arrange for a surgical referral. Monitor drain site for signs of infection. Contact physician if there are any problems or concerns. All discharge instructions reviewed with patient and/or family. Voiced understanding. Copy Copies To 1: BREA JIMENEZ JOSHUA T MD Jul 02, 2017 07:17
[2017-07-02 08:24] VITALS: BP 116/75
== END 2017-07-02 08:27 | disposition home or self-care (01) ==
LOC: EDUNIT# 06:55 → ER 06:56
DX: Z48.03 Encounter for change or removal of drains (principal); F43.10 Post-traumatic stress disorder, unspecified; E11.9 Type 2 diabetes mellitus without complications; I10 Essential (primary) hypertension; Z85.038 Personal history of other malignant neoplasm of large intestine; Z87.01 Personal history of pneumonia (recurrent); Z86.73 Personal history of transient ischemic attack (TIA), and cerebral infarction without residual deficits
CPT/HCPCS: 99283

== ENCOUNTER → 2017-07-05 | Outpatient (CLI) | payer MEDICARE ==
--- NOTE | 2017-07-05 09:05 | Diagnostic Imaging Report ---
PROCEDURE: US Gallbladder. TECHNIQUE: Multiple Real-time grayscale images were obtained over the right upper quadrant in various projections. INDICATION: Right upper quadrant pain. FINDINGS: The pancreas is obscured. The liver is fairly homogeneous with no focal lesion. Hepatopetal flow in the portal vein is demonstrated. The gallbladder fossa demonstrates significant shadowing. Although it is not well seen, this is probably related to a gallbladder filled with stones. The CBD is obscured. The right kidney is obscured by bowel gas. No fluid collection in the upper right abdomen is seen. The sonographic Wilkins sign is not well assessed due to the patient's inability to cooperate. IMPRESSION: The gallbladder fossa demonstrates a shadowing area which could be related to stones filling the gallbladder; however, this is not definitive on this limited evaluation. Correlate clinically and with CT scan, if needed. Dictated by: Dictated on workstation # [id number]
== END ==
LOC: RAD 08:09
PROVIDERS: ATTEND Family Medicine
DX: R10.11 Right upper quadrant pain (principal)
CPT/HCPCS: 76705